=== PATIENT | male | born 1990 | race Caucasian/White ===

== ENCOUNTER 2025-08-05 09:08 | Emergency (ER) | payer OTHER ==
[~2025-08-05] VITALS: Ht 175.3 cm; Wt 79.4 kg
[2025-08-05 09:13] VITALS: BP 161/84; TEMP 98; O2SAT 99
[2025-08-05] MEDS ORDERED: PRED20TA PO (09:32)
== END 2025-08-05 09:50 | disposition home or self-care (01) ==
LOC: ER 09:15
DX: L23.7 Allergic contact dermatitis due to plants, except food (principal); Z79.52 Long term (current) use of systemic steroids
CPT/HCPCS: 99283; J7512